=== PATIENT | female | born 1985 | race Two or more races ===

== ENCOUNTER 2018-03-18 16:20 | Emergency (ER) | payer MEDICAID, OTHER ==
[~2018-03-18] VITALS: Ht 177.8 cm; Wt 117.9 kg
[2018-03-18 16:33] VITALS: BP 128/75
== END 2018-03-18 17:41 | disposition home or self-care (01) ==
LOC: ER 16:50
DX: M79.601 Pain in right arm (principal); Z88.2 Allergy status to sulfonamides; Z88.8 Allergy status to other drugs, medicaments and biological substances